=== PATIENT | male | born 1960 | race Caucasian/White ===

== ENCOUNTER 2016-08-29 11:40 | Outpatient (CLI) | payer MEDICARE ==
[2016-02-24 15:04] VITALS: BP 122/67
[2016-08-29 12:29] LABS: eGFR (African) > 60; eGFR (Non-African) > 60
== END 2016-08-29 11:42 ==
LOC: LAB 11:40
PROVIDERS: ATTEND Family Medicine
DX: N28.9 Disorder of kidney and ureter, unspecified (principal); E10.3213 Type 1 diabetes mellitus with mild nonproliferative diabetic retinopathy with macular edema, bilateral
CPT/HCPCS: 36415; 80053; 83036

== ENCOUNTER 2017-08-03 10:06 | Outpatient (CLI) | payer MEDICARE ==
[2016-02-24 15:04] VITALS: BP 122/67
== END 2017-08-03 10:10 ==
LOC: LAB 10:06
PROVIDERS: ATTEND Family Medicine
DX: E10.3213 Type 1 diabetes mellitus with mild nonproliferative diabetic retinopathy with macular edema, bilateral (principal)
CPT/HCPCS: 36415; 80061; 83036